=== PATIENT | female | born 1990 | race Caucasian/White ===

== ENCOUNTER 2018-04-05 12:21 | Outpatient (CLI) | payer MEDICAID, OTHER ==
[~2018-04-05] VITALS: Ht 157.5 cm; Wt 69.3 kg
[2018-04-05] MEDS ORDERED: PNV11TAB PO (12:42)
[2018-04-05 12:44] VITALS: BP 115/70; PULSE 96; RESP 18; Ht 157.5 cm; Wt 69.3 kg
--- NOTE | 2018-04-05 14:23 | PN ---
Triage Information Date/Time Reason for visit: IUGR Weeks of Gestation 37 weeks /Para Diabetes: none Hypertention: none Objective Vital Signs Date Temp Pulse Resp B/P (MAP) Pulse Ox O2 O2 Flow FiO2 Time Delivery Rate 04/05/18 98.2 96 18 115/70 Room Air 12:44 (85) Heart Rate: 120's Heart Rate Comments Reactive Results/Medications Imaging Results EFW and BPP normal Disposition: Discharge TIMOTHY FRIAS MD Apr 05, 2018 14:23
--- NOTE | 2018-04-05 14:50 | TRIAGE ---
OB Triage Datetime Report Generated by CPN: 04/05/2018 14:50 Datetime: 04/05/2018 14:19 Labor Evaluation Frequency: occas Monitor Mode: External Duration (sec)2399: 60-100 Quality: Mild Pattern: Normal: <= 5 Contractions in 10 Minutes Resting Tone Sherman: Relaxed Heart Rate FHR Baseline Rate: 130 Monitor Mode: External US FHR Baseline Changes: No Baseline Change Variability: Moderate 6-25 bpm Accelerations: 15X15 Decelerations: None Category: Category I Datetime: 04/05/2018 13:19 Labor Evaluation Frequency: occas Duration (sec)2399: 60-110 Quality: Mild Pattern: Normal: <= 5 Contractions in 10 Minutes Resting Tone Sherman: Relaxed Heart Rate FHR Baseline Rate: 140 Monitor Mode: External US Variability: Moderate 6-25 bpm Accelerations: 15X15 Decelerations: None Category: Category I Datetime: 04/05/2018 12:50 Assessment Type: Triage Maternal Assessment Level of Consciousness: Fully Conscious DTR's/Clonus: DTRs 2+; No Clonus Headache: Denies Blurred Vision: No Respiratory Effort: Unlabored; Regular Rhythm; Equal Expansion Breath Sounds, Left: Clear and Equal Breath Sounds, Right: Clear and Equal Nausea/Vomiting: Denies RUQ Epigastric Pain: Denies Lower Extremities Edema: None Degree: None Upper Extremities Edema: None Degree: None Facial Edema: None Fall Risk Assessment History of Falling: (0) No Secondary Diagnosis: (0) No Ambulatory Aid: (0) Bedrest/Nurse Assist IV Therapy: (0) No Gait: (0) Normal/Bedrest/Immobile Mental Status: (0) Oriented to Own Ability Fall Score: 0 Fall Risk Score Definition: No Risk: No action required Datetime: 04/05/2018 12:49 EGA: 37.5 Datetime: 04/05/2018 12:48 Time of Arrival: 04/05/2018 12:15 Arrived By: Ambulatory Arrived From: Office Chief Complaint: size vs dates Movement: Present Contractions: Denies/Absent Rupture of Membranes: Denies Vaginal Bleeding: None Vaginal Discharge: Denies Recent Sexual Intercouse: Denies Abdominal Trauma: Not Applicable Patient Complaints: Other Time Provider Notified: 04/05/2018 14:16 Provider Notified: dr gabriel Initial Plan: blanca martp and efw
== END 2018-04-05 14:45 | disposition home or self-care (01) ==
LOC: OBT 12:21 → L-D 12:21 → OBT 14:45
PROVIDERS: ATTEND Obstetrics & Gynecology
DX: O36.5930 Maternal care for other known or suspected poor fetal growth, third trimester, not applicable or unspecified (principal); Z3A.37 37 weeks gestation of pregnancy
CPT/HCPCS: 76815; 76818; Z7500; G0463

== ENCOUNTER 2018-04-13 02:45 | Inpatient (IN) | payer OTHER ==
[~2018-04-13] VITALS: Ht 157.5 cm; Wt 69.8 kg
[~2018-04-13 02:45] MED LIST: PNV11TAB PO
[2018-04-13 03:56] VITALS: Ht 157.5 cm; Wt 69.8 kg
[2018-04-13] MEDS ORDERED: FER325 PO (03:56)
[2018-04-13] MEDS ORDERED: ASPI325T30 PO (03:56)
[2018-04-13 03:57] VITALS: BP 126/75; PULSE 93; RESP 20
[2018-04-13] MEDS ORDERED: OXYTOCIN 30 UNITS/LR 500 ML IV SCH ×3 (08:00→10:00)
[2018-04-13] MEDS ORDERED: BUTORPHANOL 2 MG INJ IV PRN (08:00)
[2018-04-13] MEDS ORDERED: MISOPROSTOL 200 MCG TAB PR PRN ×2 (08:00→20:30)
[2018-04-13] MEDS ORDERED: IBUPROFEN 600 MG TAB PO PRN (08:00)
[2018-04-13] MEDS ORDERED: OXYTOCIN 30 UNITS/LR 500 ML IV PRN ×2 (08:00→20:30)
[2018-04-13] MEDS ORDERED: METHYLERGONOVINE 0.2 MG INJ IM PRN ×2 (08:00→20:30)
[2018-04-13] MEDS ORDERED: LIDOCAINE 1% (MPF) 30 ML INJ INJ PRN (08:00)
[2018-04-13] MEDS ORDERED: CARBOPROST 250 MCG INJ IM PRN ×2 (08:00→20:30)
[2018-04-13] MEDS: LACTATED RINGER'S 1,000 ML IV SCH ×4 (08:10→13:57)
--- NOTE | 2018-04-13 11:02 | PREAC ---
Date/Time of Note Date/Time of Note DATE: 04/13/18 TIME: 11:01 Anesthesia Eval and Record Evaluation Time Pre-Procedure Interview DATE: 04/13/18 TIME: 11:01 Age 27 Sex female NPO: 8 hrs Preoperative diagnosis labor pain Planned procedure epidural Past Medical History Past Medical History: Includes : Gestational age: (38.3) Surgery & Anesthesia Issues No known issue Meds Anticoagulation: No Beta Dulce Maria within 24 hr: No Reason Beta Dulce Maria not given: Pt. not on B-Dulce Maria Reported Medications Aspirin* (Aspirin*) 325 Mg Tablet, 65 MG PO DAILY, TAB 04/13/18 Ferrous Sulfate* (Ferrous Sulfate*) 325 Mg Tabec, 325 MG PO DAILY, TAB 04/13/18 [id number] ( ) 1 Each Tablet, 1 TAB PO DAILY, TAB 04/05/18 Current Medications Lactated Ringer's 1,000 ml @ 125 mls/hr Q8H IV Last administered on 04/13/18at 10:50; Admin Dose 125 MLS/HR; Start 04/13/18 at 07:41 Butorphanol Tartrate (Stadol) 2 mg Q2H PRN IV .PAIN; Start 04/13/18 at 08:00 Lidocaine (Xylocaine 1% (Mpf)) 30 ml ONCE PRN INJ .EPISIOTOMY; Start 04/13/18 at 08:00 Oxytocin/Lactated Ringer's 500 ml @ 500 mls/hr ONCE POST IV ; Start 04/13/18 at 08:00 Oxytocin/Lactated Ringer's 500 ml @ 125 mls/hr POST IV ; Start 04/13/18 at 08:00 Ibuprofen (Motrin) 600 mg ONCE PRN PO .PAIN 1-5; Start 04/13/18 at 08:00 Oxytocin/Lactated Ringer's 500 ml @ 0 mls/hr ONCE PRN IV .VAGINAL BLEEDING; Start 04/13/18 at 08:00 Methylergonovine Maleate (Methergine) 0.2 mg ONCE PRN IM .VAGINAL BLEEDING; Start 04/13/18 at 08:00 Carboprost Tromethamine (Hemabate) 250 mcg ONCE PRN IM .VAGINAL BLEEDING; Start 04/13/18 at 08:00 Misoprostol (Cytotec) 1,000 mcg ONCE PRN KS .VAGINAL BLEEDING; Start 04/13/18 at 08:00 Oxytocin/Lactated Ringer's 500 ml @ 0 mls/hr Q0M IV Last administered on 04/13/18at 10:31; Admin Dose 1 MLS/HR; Start 04/13/18 at 10:00 Meds reviewed: Yes Allergies Coded Allergies: No Known Allergy (Unverified , 04/13/18) Allergies Reviewed: Yes Labs/Studies Labs Reviewed: Reviewed by anesthesiologist Result Diagram: 04/13/18 0800 Laboratory Tests 04/13/18 08:00 Blood Bank Test 04/13/18 08:00 Antibody Screen NEGATIVE Blood Type B POSITIVE Rh Immune Globulin Candidate NO test: Positive Studies: ECG (n/a), CXR (n/a) Pre-procedure Exam Last vitals Vital Signs Date Temp Pulse Resp B/P (MAP) Pulse Ox O2 O2 Flow FiO2 Time Delivery Rate 04/13/18 98.5 93 20 126/75 Room Air 03:57 (92) Airway: Adequate mouth opening Mallampati: Mallampati I Teeth: Normal Lung: Normal Heart: Normal ASA Physical Status ASA physical status: 2 Emergency: None Planned Anesthetic Neuraxial: Epidural Planned Pain Management Epidural Pre-operative Attestations Prior to commencing anesthesia and surgery, the patient was re-evaluated, there was verification of: *The patient's identity *The results of appropriate recent lab work and preoperative vital signs *The above evaluation not changing prior to induction *Anesthetic plan, risk benefits, alternative and complications discussed with patient/family; questions answered; patient/family understands, accepts and wishes to proceed. SERAFIN JANE MD Apr 13, 2018 11:02
--- NOTE | 2018-04-13 11:02 | HP ---
Date/Time of Note Date/Time of Note DATE: 04/13/18 TIME: 10:55 OB - History Hx of Present Chief Complaint: leakage of fluid and vaginal bleeding Estimated Due Date: Apr 21, 2018 : 2 Para: 0 Spontaneous : 1 Therapeutic : 0 Care: Other (late care) Ultrasounds: Normal mid trimester US Obstetrical Complications: None Medical Complications: None Past Family/Social History * Past Medical, Surgical, Family and Obstetric Histories reviewed from chart. GBS Status: Negative OB Admission Exam Vital Signs Vital Signs Vital Signs Date Temp Pulse Resp B/P (MAP) Pulse Ox O2 O2 Flow FiO2 Time Delivery Rate 04/13/18 98.5 93 20 126/75 Room Air 03:57 (92) Physical Exam HEENT: WNL Heart: Rhythm Normal Lungs: Clear, Equal Abdomen: WNL Extremities: Normal Reflexes: Normal Cervical Dilatation: 1cm Effacement: 75% Station: -1 Membranes: Ruptured Amniotic Fluid: Clear Heart Rate: 120's Accelerations: Accelerations Present Decelerations: No Decelerations Varibility: Moderate Last 72 hours Lab Results CBC & BMP 04/13/18 04:20 04/13/18 08:00 OB Assessment/Plan Reason for admission: rupture of membranes Plan: Induction Induction Method: per Pitocin Protocol TIMOTHY FRIAS MD Apr 13, 2018 11:02
[2018-04-13] MEDS ORDERED: FENTAnyl 2MCG/ML-ROPIV 0.2% 100 ML BAG EPI SCH (11:30)
[2018-04-13] MEDS ORDERED: ONDANSETRON 4 MG INJ IV PRN (11:30)
[2018-04-13] MEDS ORDERED: NALOXONE (0.4 MG/ML) INJ IV PRN (11:30)
--- NOTE | 2018-04-13 18:15 | LDN ---
Date/Time of Note Date/Time of Note DATE: 04/13/18 TIME: 18:12 Delivery Summary Weeks of Gestation 38 weeks and 6 days Placenta Delivered: Spontaneously Meconium: none Episiotomy: No Laceration repair: Second degree perineal laceration repaired with 3-0 Vicryl and 3-0 chromic. Anesthesia type: Epidural Estimated blood loss: 300 Sponge & Needle done & correct: Yes All needle counts correct: Yes Any foreign bodies felt in the: No Delivery Information Sex Infant Sex: female Apgars 1 Minute: 9 5 Minute: 9 Suctioning Nose & mouth suctioned at ilir: No Delee suction performed: No Umbilical Cord Umbilical cord with: 3 Vessels Cord presentations: no nuchal cord Cord Blood was obtained: Yes Mother & Baby Disposition Disposition Mom & Baby to Maternity; Good: Yes TIMOTHY FRIAS MD Apr 13, 2018 18:15
--- NOTE | 2018-04-13 19:45 | PAC ---
Date/Time of Note Date/Time of Note DATE: 04/13/18 TIME: 19:44 Post-Anesthesia Notes Post-Anesthesia Note Last documented vital signs Vital Signs Date Temp Pulse Resp B/P (MAP) Pulse Ox O2 O2 Flow FiO2 Time Delivery Rate 04/13/18 98.5 93 20 126/75 97 Room Air 03:57 (92) Activity: WNL Respiratory function: WNL Cardiovascular function: WNL Mental status: Baseline Pain reasonably controlled: Yes Hydration appropriate: Yes Nausea/Vomiting absent: No SERAFIN JANE MD Apr 13, 2018 19:45
[2018-04-13] MEDS ORDERED: BENZOCAINE 20% 56 ML SPRAY TOP PRN (20:30)
[2018-04-13] MEDS ORDERED: DIBUCAINE 1% 30 GM OINT TOP PRN (20:30)
[2018-04-13] MEDS ORDERED: ACETAMINOPHEN 325 MG TAB PO PRN (20:30)
[2018-04-13] MEDS ORDERED: WITCH HAZEL/GLYCERIN PAD PR PRN (20:30)
[2018-04-13] MEDS ORDERED: HYDROCODONE/APAP (5/325) TAB PO PRN (20:30)
[2018-04-13 20:40] VITALS: BP 133/80; PULSE 108; RESP 18
[2018-04-13] MEDS: LACTATED RINGER'S 1,000 ML IV* SCH (21:57)
[2018-04-13] MEDS: SENNA/DOCUSATE NA (8.6MG/50MG) TAB PO SCH (22:01)
[2018-04-13] MEDS: IBUPROFEN 600 MG TAB PO SCH (23:51)
[2018-04-14] VITALS: BP 122/76; PULSE 108; RESP 18
[2018-04-14 04:13] VITALS: BP 111/78; PULSE 89; RESP 18
[2018-04-14] MEDS: LACTATED RINGER'S 1,000 ML IV* SCH ×2 (04:25→12:25)
[2018-04-14] MEDS: IBUPROFEN 600 MG TAB PO SCH ×3 (05:43→17:17)
[2018-04-14 07:45] VITALS: BP 122/80; PULSE 101; RESP 19
[2018-04-14] MEDS: SENNA/DOCUSATE NA (8.6MG/50MG) TAB PO SCH ×2 (10:22→21:00)
[2018-04-14 16:00] VITALS: BP 123/77; PULSE 94; RESP 18
--- NOTE | 2018-04-14 17:19 | PN ---
Date/Time of Note Date/Time of Note DATE: 04/14/18 TIME: 17:17 OB Subjective Subjective Subjective PPD# 1 Patient is doing well. She denies nausea, vomiting, shortness of breath, chest pain, headache. She has been ambulating without difficulty, tolerating regular diet. Pain is well controlled on current medications OB Objective Objective Objective VS - Last 72 Hours, by Label Date Temp Pulse Resp B/P (MAP) Pulse Ox O2 O2 Flow FiO2 Time Delivery Rate 04/14/18 97.8 94 18 123/77 Room Air 16:00 (92) 04/14/18 98.1 101 19 122/80 Room Air 07:45 (94) 04/14/18 97.9 89 18 111/78 98 Room Air 04:13 (89) 04/14/18 99.0 108 18 122/76 98 Room Air 00:00 (91) 04/13/18 99.0 108 18 133/80 98 Room Air 20:40 (97) 04/13/18 98.5 93 20 126/75 Room Air 03:57 (92) General: AAO X 3, comfortable, NAD, appropriate mood and affect. ABD: +BS. Soft, non-tender. Uterus 2 cm below umbilicus Flank: No CVA tenderness (B/L) LE: Mild edema. No clubbing, cyanosis, thigh or calf tenderness (B/L). Homans 'sign is negative Laboratory Tests Test 04/13/18 04:20 04/13/18 08:00 04/14/18 06:47 04/14/18 07:50 White Blood 4.7 10^3/ul 4.8 10^3/ul 8.0 10^3/ul Count Red Blood Count 3.77 10^6/ul 3.96 10^6/ul 3.42 10^6/ul Hemoglobin 11.4 g/dl 12.3 g/dl 10.6 g/dl Hematocrit 35.4 % 36.9 % 32.4 % Mean 93.9 fl 93.2 fl 94.7 fl Corpuscular Volume Mean 30.2 pg 31.1 pg 31.0 pg Corpuscular Hemoglobin Mean 32.2 g/dl 33.3 g/dl 32.7 g/dl Corpuscular Hemoglobin Conc ent Red Cell 13.4 % 13.4 % 13.4 % Distribution Width Platelet Count 142 10^3/UL 137 10^3/UL 132 10^3/UL Mean Platelet 12.5 fl 12.2 fl 12.4 fl Volume Immature 0.800 % 1.500 % 0.800 % Granulocytes % Neutrophils % 61.8 % 65.7 % 73.5 % Lymphocytes % 26.8 % 23.7 % 16.9 % Monocytes % 9.6 % 8.5 % 8.4 % Eosinophils % 0.8 % 0.4 % 0.1 % Basophils % 0.2 % 0.2 % 0.3 % Nucleated Red 0.0 /100WBC 0.0 /100WBC 0.0 /100WBC Blood Cells % Immature 0.040 10^3/ul 0.070 10^3/ul 0.060 10^3/ul Granulocytes # Neutrophils # 2.9 10^3/ul 3.2 10^3/ul 5.9 10^3/ul Lymphocytes # 1.3 10^3/ul 1.1 10^3/ul 1.4 10^3/ul Monocytes # 0.5 10^3/ul 0.4 10^3/ul 0.7 10^3/ul Eosinophils # 0.0 10^3/ul 0.0 10^3/ul 0.0 10^3/ul Basophils # 0.0 10^3/ul 0.0 10^3/ul 0.0 10^3/ul Nucleated Red 0.0 10^3/ul 0.0 10^3/ul 0.0 10^3/ul Blood Cells # Urine Color YELLOW Urine Clarity SLIGHTLY CLOUDY Urine pH 7.0 Urine Specific 1.009 [place] Urine Ketones NEGATIVE mg/dL Urine Nitrite NEGATIVE mg/dL Urine Bilirubin NEGATIVE mg/dL Urine NEGATIVE mg/dL Urobilinogen Urine Leukocyte NEGATIVE Pedro/ul Esterase Urine 1 /HPF Microscopic RBC Urine 2 /HPF Microscopic WBC Urine Squamous MODERATE /HPF Epithelial Cell s Urine Bacteria FEW /HPF Urine 3+ mg/dL Hemoglobin Urine Glucose NEGATIVE mg/dL Urine Total NEGATIVE mg/dl Protein Membranes POSITIVE Rupture Prothrombin 11.8 Sec Time Prothrombin 0.9 Time Ratio INR 0.86 International Normalized Rati o Activated 24.7 Sec Partial Thrombo plast Time Rapid Plasma NONREACTIVE Reagin Lab Scanned REFERENCE Report LAB [id number] OB Assessment/Plan Other plan: 27-year-old s/p normal vaginal delivery. PPD#1 - AF, VSS - Contraception methods with R/B/A/FR discussed - Continue care - Discharge home tomorrow - Rx and instruction given - Follow up in 2 and 6 weeks at clinic FAMILIA STRONG Apr 14, 2018 17:19
--- NOTE | 2018-04-14 17:19 | DS ---
Date/Time of Note Date/Time of Note DATE: 04/14/18 TIME: 17:19 Obstetrical Discharge Record Final Diagnosis Final Diagnosis: Term delivered Other Final Diagnosis 27-year-old s/p normal vaginal delivery. PPD#1 - AF, VSS - Contraception methods with R/B/A/FR discussed - Continue care - Discharge home tomorrow - Rx and instruction given - Follow up in 2 and 6 weeks at clinic Vaginal Delivery Obstetrical Delivery: Spontaneous Condition on Discharge Physical Assessment Last Vitals: Vital Signs Date Temp Pulse Resp B/P (MAP) Pulse Ox O2 O2 Flow FiO2 Time Delivery Rate 04/14/18 97.8 94 18 123/77 Room Air 16:00 (92) 04/14/18 98 04:13 Voiding: Yes Bowel Movement: Yes Breast: Soft, non-tender Fundus: Firm Calf Tenderness: No Patient Condition: Stable FAMILIA STRONG Apr 14, 2018 17:19
[2018-04-14 20:30] VITALS: BP 111/67; PULSE 97; RESP 19
[2018-04-15] MEDS: IBUPROFEN 600 MG TAB PO SCH ×3 (00:36→13:00)
[2018-04-15] MEDS: LACTATED RINGER'S 1,000 ML IV* SCH (00:54)
[2018-04-15 04:15] VITALS: BP 107/58; PULSE 100; RESP 19
[2018-04-15 08:30] VITALS: BP 110/73; PULSE 100; RESP 19
[2018-04-15] MEDS ORDERED: DIPHTH/TET/ACEL PERTUSS (ADULT) 0.5 ML VIAL IM* ONE (09:00)
[2018-04-15] MEDS: SENNA/DOCUSATE NA (8.6MG/50MG) TAB PO SCH (09:59)
[2018-04-15 11:50] VITALS: BP 121/70; PULSE 95; RESP 18
== END 2018-04-15 14:20 | disposition home or self-care (01) | DRG 807 ==
LOC: L-D 02:45 → OBT 02:45 → L-D 07:30 → OBT 07:30 → L-D 09:04 → PP1 20:00
PROVIDERS: ADMIT Obstetrics & Gynecology; ATTEND Obstetrics & Gynecology
PROC: 10E0XZZ Delivery of Products of Conception, External Approach (ICD-10-PCS; principal; 2018-04-13)
PROC: 0KQM0ZZ Repair Perineum Muscle, Open Approach (ICD-10-PCS; 2018-04-13)
DX: O70.1 Second degree perineal laceration during delivery (principal); Z37.0 Single live birth; Z3A.38 38 weeks gestation of pregnancy
CPT/HCPCS: 62319; 76818; 81001; 84112; 85025; 85610; 85730; 86592; 86850; 86900; 86901; 87086; 99464; G0463; J2210; J2590; J3010; J7120